=== PATIENT | female | born 1995 | race Caucasian/White ===

== ENCOUNTER → 2018-12-14 | Outpatient (CLI) | payer OTHER ==
[~2018-12-14] MED LIST: DEBR6.5S4 OTIC; NAPR-837 PO
--- NOTE | 2018-12-14 17:22 | REP ---
KUB ABDOMEN AND PELVIS: KUB film of the abdomen and pelvis was performed. There is no evidence of small bowel obstruction. No small bowel dilatation is noted. There is mild fecal material in the right colon. The stomach is not dilated. No abnormal calcifications are seen. IMPRESSION: Mild fecal retention, with fecal material predominately seen in the right colon diffusely. Electronically Signed by Fredi Payne MD 12/14/2018 06:50 P
== END ==
LOC: M LRY 15:45
PROVIDERS: ATTEND Nurse Practitioner Family
DX: K59.00 Constipation, unspecified (principal); R10.9 Unspecified abdominal pain

== ENCOUNTER 2019-09-18 12:19 | Outpatient (CLI) | payer OTHER ==
[~2019-09-18] VITALS: Ht 162.6 cm; Wt 57.3 kg
[2019-09-18 12:41] VITALS: BP 131/77
[2019-09-18] MEDS ORDERED: ZOLO100T PO (12:51)
[2019-09-18] MEDS ORDERED: MAPA500T2 PO (13:01)
[2019-09-18 13:14] VITALS: BP 118/75
[2019-09-18 13:48] LABS: AMORPHOUS SEDIMENT SMALL (NEGATIVE); APPEARANCE, URINE HAZY (CLEAR); BACTERIA, URINE AUTO 1+ (NEGATIVE); BILIRUBIN, URINE AUTO 1+ (NEGATIVE); BLOOD, URINE BLOOD NEGATIVE (NEGATIVE); COLOR, URINE AMBER (YELLOW); GLUCOSE, URINE (UA) AUTO NEGATIVE (NEGATIVE); KETONE, URINE AUTO TRACE mg/dL (NEGATIVE); LEUKOCYTE ESTERASE, URINE AUTO TRACE (NEGATIVE); MUCUS, URINE LARGE (NEGATIVE); NITRITE, URINE AUTO NEGATIVE (NEGATIVE); PROTEIN, URINE AUTO 2+ mg/dL (NEGATIVE); RBC, URINE AUTO 4 /HPF (0-3); SPECIFIC GRAVITY URINE AUTO 1.033 (1.002-1.035); SQUAMOUS EPITHELIAL CELL UR AU 3 /HPF (0-6); TRANSITIONAL EPITHELIAL AUTO 1 /HPF; WBC, URINE AUTO 21 /HPF (0-3)
[2019-09-18 14:37] VITALS: BP 105/58
--- NOTE | 2019-09-18 14:46 | IPNPDOC ---
Text Note Date of Service The patient was seen on 09/18/19. NOTE patient is a 24 yo @29+1wks gestation with concern for lower back pain x 3 days. patient reports coming and going, though she does not know frequency. also has nausea and lost of appetite. denies emesis. She is not sleeping well. report having intermittent RAMIREZ. She had taken tylenol prior to coming in. Her spouse is back from deployment, though is in quarantine for another 5 days. denies vb/lof. +FM. vitals: normal NAD, laying in bed abd: gravid, soft, nt back: no cva tenderness lower ext: no edema/erythema/tenderness pelvic exam: normal external genitalia normal vaginal discharge, no lesion, nt cervix parous, no lesion, nt DE: CLOSED/LONG/HIGH, FIRM fht: 150/mod cole/no accel/no decel. appropriate for gestational age. toco: quiet labs reviewed. UA: equivocal for infection, culture pending wet prep showed +clue cells a/p patient is a 24 yo @29+1wks, not in labor. UA equivocal for infection. wet prep shows clue cells start flagyl. prescription written for [facility] at [facility]. return precautions given. patient reminded of 28wks labs. DO shyam VS,Himanshu, I+O VS, Rickye, I+O Vital Signs Date Time Temp Pulse Resp B/P (MAP) Pulse Ox O2 Delivery O2 Flow Rate FiO2 09/18/19 13:14 113 18 118/75 (89) 09/18/19 12:41 98.0 EZIO HILLIARD DO Sep 18, 2019 14:19
[2019-09-18] MEDS ORDERED: NITROFURANTOIN (MACROBID) 100 MG CAP PO ONE (15:00)
[2019-09-18] MEDS ORDERED: METOCLOPRAMIDE 10 MG TAB PO ONE (15:00)
== END 2019-09-18 14:50 | disposition home or self-care (01) ==
LOC: M LDO 12:19
PROVIDERS: ATTEND Obstetrics & Gynecology
DX: O26.893 Other specified pregnancy related conditions, third trimester (principal); O23.43 Unspecified infection of urinary tract in pregnancy, third trimester; Z3A.29 29 weeks gestation of pregnancy
CPT/HCPCS: 59025; 81001; 87086; 87210; G0378; G0463

== ENCOUNTER 2019-10-26 16:08 | Outpatient (CLI) | payer OTHER ==
[~2019-10-26] VITALS: Ht 162.6 cm; Wt 61.8 kg
[~2019-10-26 16:08] MED LIST changes: +MAPA500T2 PO; +ZOLO100T PO
[2019-10-26 16:36] VITALS: BP 105/58
[2019-10-26] MEDS ORDERED: COLA100C5 PO (17:14)
[2019-10-26] MEDS ORDERED: MAPA500T2 PO (17:14)
[2019-10-26] MEDS ORDERED: LR 1,000 ML IV ONE (17:30)
[2019-10-26 18:39] LABS: AMORPHOUS SEDIMENT SMALL (NEGATIVE); APPEARANCE, URINE HAZY (CLEAR); BACTERIA, URINE AUTO 1+ (NEGATIVE); BILIRUBIN, URINE AUTO NEGATIVE (NEGATIVE); BLOOD, URINE BLOOD NEGATIVE (NEGATIVE); COLOR, URINE YELLOW (YELLOW); GLUCOSE, URINE (UA) AUTO NEGATIVE (NEGATIVE); KETONE, URINE AUTO NEGATIVE (NEGATIVE); LEUKOCYTE ESTERASE, URINE AUTO TRACE (NEGATIVE); MUCUS, URINE SMALL (NEGATIVE); NITRITE, URINE AUTO NEGATIVE (NEGATIVE); PROTEIN, URINE AUTO NEGATIVE (NEGATIVE); RBC, URINE AUTO 2 /HPF (0-3); SPECIFIC GRAVITY URINE AUTO 1.013 (1.002-1.035); SQUAMOUS EPITHELIAL CELL UR AU 1 /HPF (0-6); UROBILINOGEN, URINE AUTO 0.2 mg/dL (0.0-2.0); WBC, URINE AUTO 15 /HPF (0-3)
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
== END 2019-10-26 18:58 | disposition home or self-care (01) ==
LOC: M LDO 16:08
PROVIDERS: ATTEND Registered Nurse Maternal Newborn
DX: O26.893 Other specified pregnancy related conditions, third trimester (principal); M54.5 Low back pain; O26.853 Spotting complicating pregnancy, third trimester; Z3A.34 34 weeks gestation of pregnancy
CPT/HCPCS: 59025; 81001; 87070; 87086; G0378; G0463

== ENCOUNTER 2019-11-07 00:54 | Outpatient (CLI) | payer OTHER ==
[~2019-11-07] VITALS: Ht 162.6 cm; Wt 63.8 kg
[~2019-11-07 00:54] MED LIST changes: +COLA100C5 PO
[2019-11-07 01:03] VITALS: BP 142/78
[2019-11-07 01:06] VITALS: BP 129/75
[2019-11-07] MEDS ORDERED: ZOFR4TAB16 PO (01:08)
[2019-11-07] MEDS ORDERED: PRENTAB9 PO (01:08)
[2019-11-07] MEDS ORDERED: PROMETHAZINE INJ 25 MG/ML VIAL (J2550) IV ONE (02:00)
[2019-11-07 02:14] VITALS: BP 121/59
[2019-11-07] MEDS ORDERED: GNP250TA9 PO (02:32)
[2019-11-07] MEDS ORDERED: ASPI81TA86 PO (02:32)
[2019-11-07 03:21] VITALS: BP 109/59
[2019-11-07 04:22] VITALS: BP 107/56
[2019-11-07] MEDS ORDERED: LR 1,000 ML IV ONE (04:45)
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
== END 2019-11-07 06:25 | disposition home or self-care (01) ==
LOC: M LDO 00:54
PROVIDERS: ATTEND Obstetrics & Gynecology
DX: O26.893 Other specified pregnancy related conditions, third trimester (principal); Z3A.36 36 weeks gestation of pregnancy
CPT/HCPCS: 59025; 76815; 81001; 96361; 96374; G0378; G0463

== ENCOUNTER 2019-11-21 06:40 | Inpatient (IN) | payer OTHER ==
[2019-11-21] VITALS (26 sets, daily range): BP systolic 106–139; BP diastolic 62–88
[~2019-11-21] VITALS: Ht 162.6 cm; Wt 62.4 kg
[~2019-11-21 06:40] MED LIST changes: +ASPI81TA86 PO; +GNP250TA9 PO; +PRENTAB9 PO; +ZOFR4TAB16 PO
[2019-11-21] MEDS ORDERED: LR 1,000 ML IV SCH (10:40)
[2019-11-21] MEDS ORDERED: miSOPROStol 50MCG 1/2 TABLET PO ONE (10:45)
[2019-11-21] MEDS ORDERED: LACTATED RINGER'S 1000 ML IV ONE (10:45)
[2019-11-21 11:10] LABS: HEMATOCRIT 32.5 % (36.0-47.0); HEMOGLOBIN 10.8 g/dl (12.0-15.5); MEAN CORPUSCULAR HGB CONC 33.2 g/dl (32.0-36.5); MEAN CORPUSCULAR VOLUME 84.2 fl (80.0-96.0); PLATELET COUNT, AUTOMATED 287 10^3/uL (150-450); RED BLOOD COUNT 3.86 10^6/uL (4.00-5.40); WHITE BLOOD COUNT 12.9 10^3/uL (4.0-10.0)
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
[2019-11-21] MEDS ORDERED: OXYTOCIN DRIP 30 UNITS in IV 1 EA IV SCH (18:30)
[2019-11-21] MEDS ORDERED: FENTANYL 2MCG/ML ROPIVACAINE 0.2% IN 0.9% NACL 100ML IVBAG As Ordered ONE (22:37)
--- NOTE | 2019-11-21 22:47 | IPN ---
DATE: 11/21/2019 24-year-old 5, para 3, admitted for induction of labor. She is at 38 and 2 weeks of gestation. The diagnosis was small for gestational age. She was given misoprostol 50 mg by mouth. She did picker machine operator with contractions, moderate intensity and variability. She was breathing through them. At the initial time she is 50%, posterior, fingertip, -3 station. Prior to initiating Pitocin, we checked the patient. She had changed in that her cervix was about 80% effaced, about 3 cm and a -2 station. The contractions seemed to be petering out and therefore safe to proceed. We will order Pitocin, and the protocol is as required. Anticipate increase of contractions effectiveness followed by epidural.
[2019-11-21] MEDS ORDERED: EPIDURAL/PCA KEYS XX PRN (23:18)
[2019-11-21] MEDS ORDERED: NALOXONE INJ 0.4MG/1ML VIAL (J2310 PER 1MG) IV PRN (23:18)
[2019-11-21] MEDS ORDERED: ONDANSETRON 4MG/2ML VIAL IV PRN (23:18)
[2019-11-21] MEDS ORDERED: EPIDURAL COMMENT XX SCH (23:18)
[2019-11-21] MEDS ORDERED: LACTATED RINGER'S 1000 ML IV PRN (23:18)
[2019-11-21] MEDS ORDERED: ePHEDrine SULFATE 25 MG/5 ML(5MG/ML) SYRINGE IV PRN (23:18)
[2019-11-21] MEDS ORDERED: REFRIGERATOR IV KEYS XX PRN (23:18)
[2019-11-21] MEDS ORDERED: diphenhydrAMINE 50MG/ML VIAL (J1200) IV PRN (23:18)
[2019-11-21] MEDS ORDERED: FENTANYL/ROPIVACAINE/NACL BAG 100 ML EPIDURAL SCH (23:18)
[2019-11-22] VITALS (31 sets, daily range): BP systolic 100–139; BP diastolic 50–80
[2019-11-22 04:28] LABS: CORD GAS ABE A -1.6; CORD GAS ABE V -3.2; CORD GAS HCO3 A 24.2 MEQ/L; CORD GAS HCO3 V 22.2 MEQ/L; CORD GAS O2 SAT A 47.6 %; CORD GAS O2 SAT V 48.1 %; CORD GAS PCO2 A 44.1 mmHg; CORD GAS PCO2 V 41.3 mmHg; CORD GAS PH A 7.357 UNITS; CORD GAS PH V 7.349 UNITS; CORD GAS PO2 A 19.7 mmHg; CORD GAS PO2 V 19.5 mmHg; CORD GAS SBC A 21.6 MEQ/L; CORD GAS SBC V 20.4 MEQ/L; CORD GAS TCO2 A 25.5 MEQ/L; CORD GAS TCO2 V 23.5 MEQ/L
[2019-11-22] MEDS ORDERED: ACETAMINOPHEN TAB 650MG DOSE (2X325MG) PO PRN (04:45)
[2019-11-22] MEDS ORDERED: MOM 30ML SUSPENSION UDC PO PRN (04:45)
[2019-11-22] MEDS ORDERED: MEASLES,MUMPS,RUBELLA VACCINE INJ (MMR-II) (90707) SC SCH (04:45)
[2019-11-22] MEDS ORDERED: IBUPROFEN 600MG TAB PO PRN (04:45)
[2019-11-22] MEDS ORDERED: OXYTOCIN DRIP 30 UNITS in IV 1 EA IV ONE (04:45)
[2019-11-22] MEDS ORDERED: ACETAMINOPHEN 500 MG TAB PO PRN (04:45)
[2019-11-22] MEDS ORDERED: OXYTOCIN INJ 10 UNITS/ML VIAL (J2590) IV ONE (04:45)
[2019-11-22] MEDS ORDERED: DIBUCAINE 1% OINTMENT 30GM TOP PRN (04:45)
[2019-11-22] MEDS ORDERED: METHYLERGONOVINE MALEATE 0.2 MG TAB PO PRN (04:45)
[2019-11-22] MEDS ORDERED: DOCUSATE SODIUM 100MG CAPSULE PO PRN (04:45)
[2019-11-22] MEDS ORDERED: RHOGAM 300 MCG (1500 IU) INJ (J2790) IM SCH (04:45)
[2019-11-22] MEDS ORDERED: ANUSOL HC CREAM 30GM TOP PRN (04:45)
[2019-11-22] MEDS: IBUPROFEN 800 MG TAB PO PRN ×2 (08:58→17:14)
[2019-11-22] MEDS: PRENATAL VITAMINS CHEWABLE TABLET PO SCH (08:59)
[2019-11-22] MEDS: SERTRALINE 100 MG TAB PO SCH (15:11)
--- NOTE | 2019-11-22 15:17 | IPN ---
DATE: 11/22/2019 This lady is a 24-year-old, 5, para 3, admitted for induction of labor at 38 and 2 weeks of gestation because of small for gestational age infant. She had one dose of the misoprostol 50 mg by mouth, which got her into active labor. She eventually had augmentation with Pitocin and then requested an epidural at appropriate interval. Once the epidural was in place and she was comfortable, examination revealed that she was a good 3-4 cm and head had come down to -2 station, about 80% effaced. She did have bulging membranes. On discussion with the patient regarding artificial rupture of membranes, she consented to having that done. An artifical rupture of membranes (AROM) was done draining clear liquor. The vertex was in the OT position, had a category 1 strip at the time of ruptured membranes. Her blood pressure is 112/75, respirations were 20 and pulse was 77, and she was still afebrile. Pitocin was at 12 milliunits and was having adequate contractions. Safe to proceed.
[2019-11-23 06:00] VITALS: BP 105/58
[2019-11-23 07:21] LABS: HEMATOCRIT 27.1 % (36.0-47.0); HEMOGLOBIN 8.9 g/dl (12.0-15.5); MEAN CORPUSCULAR HEMOGLOBIN 28.2 pg (27.0-33.0); MEAN CORPUSCULAR HGB CONC 32.8 g/dl (32.0-36.5); MEAN CORPUSCULAR VOLUME 85.8 fl (80.0-96.0); PLATELET COUNT, AUTOMATED 220 10^3/uL (150-450); RED BLOOD COUNT 3.16 10^6/uL (4.00-5.40); WHITE BLOOD COUNT 13.3 10^3/uL (4.0-10.0)
[2019-11-23] MEDS: PRENATAL VITAMINS CHEWABLE TABLET PO SCH (08:48)
[2019-11-23] MEDS: SERTRALINE 100 MG TAB PO SCH (08:48)
[2019-11-23] MEDS: IBUPROFEN 800 MG TAB PO PRN (11:16)
[2019-11-23] MEDS ORDERED: IBUP80TA PO (12:02)
[2019-11-23] MEDS ORDERED: DIBU10OI TOP (12:02)
[2019-11-23] MEDS ORDERED: DOCU100C16 PO (12:02)
[2019-11-23 18:00] VITALS: BP 132/67
[2019-11-24] MEDS: IBUPROFEN 800 MG TAB PO PRN (00:34)
[2019-11-24 06:00] VITALS: BP 120/74
[2019-11-24] MEDS: PRENATAL VITAMINS CHEWABLE TABLET PO SCH (08:36)
[2019-11-24] MEDS: SERTRALINE 100 MG TAB PO SCH (08:36)
--- NOTE | 2019-11-24 13:46 | DN ---
DATE: 11/22/2019 This is a 24-year-old 5, admitted for induction of labor at 38 and 2 weeks of gestation because of small for gestational age. She had an epidural in place. Spontaneous vaginal delivery of a live- male , 6 pounds 2 ounces, 2770 grams, scores of 8 and 8 at one and five minutes, respectfully. Arterial pH 7.35, base excess -1.6, venous pH 7.34, base excess -3.2. There was a true knot in the cord. Placenta delivered spontaneously thereafter. Three vessels in the cord, membranes and tissues intact. Uterus contracted well down on Pitocin. Anterior, posterior, and lateral padgett were complete. Sphincter was tight. The patient and baby tolerating procedure well.
--- NOTE | 2019-11-25 16:04 | DSES ---
DATE OF ADMISSION: 11/21/2019 DATE OF DISCHARGE: 11/24/2019 A 24-year-old 5, now para 4, admitted for induction of labor at 38 and 2 weeks of gestation because small for gestational age. Epidural in place. Spontaneous vaginal delivery of a male infant, 6 pounds 2 ounces, 2770 grams, scores of 8 and 8 at one and five minutes, respectfully. True knot in the cord. Arterial pH 7.35, base excess -1.6, venous pH 7.34, base excess -3.2. On discharge, her blood pressure is 105/58, respirations 18, pulse 69, temperature 97.8. Her admitting hemoglobin was 10.8, hematocrit 32.5, and platelets 287. Discharge hemoglobin 8.9, hematocrit 27.1, and platelets are 220. We discussed phlebitis, cystitis, mastitis, metritis, cellulitis, diet, excise pain management, and perineal, breast, and wound care. The rest examination is unremarkable. Normocephalic, atraumatic. Neck: Full range of motion. Pupils equal and reactive to light. Distal pulses are symmetric. No evidence of deep vein thrombosis (DVT), pulmonary embolism (PE), or superficial phlebitis. Chest is clear bilaterally to bases. No wheezes or rhonchi. No costovertebral angle (CVA) tenderness. Abdomen soft. Four-quadrant bowel sounds. Uterus 2 below. Lochia is moderate. Perineum is intact. She has no rashes, lesions, or pruritus. No arthralgia or myalgia. No complaint of joint pain. No complaint of frequency, urgency. In summary, we have a term gestation, delivered a live- male . Plans for control or Nexplanon. Followup in 6 weeks at [facility], and medication were dispensed at [place]. The patient was discharged improved.
--- NOTE | 2019-11-26 14:58 | IPN ---
DATE: This patient requested circumcision of her male after discussing risks and benefits of circumcision, the medical and nonmedical indications , the penile block and aftercare. Expressed understanding of penile block, aftercare and bleeding, signed the consent form. All questions were answered. 20-minute discussion. We await clearance by the stone sawyer.
== END 2019-11-24 10:50 | disposition home or self-care (01) | DRG 807 ==
LOC: M LDI 06:40 → M OBS 11-22 06:11
PROVIDERS: ADMIT Obstetrics & Gynecology; ATTEND Obstetrics & Gynecology
PROC: 3E0P7GC Introduction of Other Therapeutic Substance into Female Reproductive, Via Natural or Artificial Opening (ICD-10-PCS; 2019-11-21)
PROC: 10E0XZZ Delivery of Products of Conception, External Approach (ICD-10-PCS; principal; 2019-11-22)
PROC: 10907ZC Drainage of Amniotic Fluid, Therapeutic from Products of Conception, Via Natural or Artificial Opening (ICD-10-PCS; 2019-11-22)
DX: O36.5930 Maternal care for other known or suspected poor fetal growth, third trimester, not applicable or unspecified (principal); Z37.0 Single live birth; Z3A.38 38 weeks gestation of pregnancy; O99.344 Other mental disorders complicating childbirth; F32.9 Major depressive disorder, single episode, unspecified; F41.9 Anxiety disorder, unspecified; O69.2XX0 Labor and delivery complicated by other cord entanglement, with compression, not applicable or unspecified